=== PATIENT | male | born 1965 | race Caucasian/White ===

== ENCOUNTER 2018-08-10 05:30 | Emergency (ER) | payer OTHER ==
[2018-08-10 06:05] LABS: Absolute Lymphocytes (CBC) 1.5 K/uL (0.7-4.9); Absolute Monocytes 0.3 K/uL (0.1-1.3); Absolute Neutrophil 2.4 K/uL (1.8-8.0); Basophils % 0.3 % (0-1.3); Eosinophils % 1.1 % (0-4.4); Hematocrit 40.1 % (39.6-49.0); Lymphocytes % 34.8 % (15.3-44.8); MCH 29.7 pg (27.0-35.0); MPV 7.6 fL (7.6-11.3); RBC Red Blood Cell Count 4.66 M/uL (4.33-5.43)
[2018-08-10] MEDS ORDERED: ASPIRIN 81 MG CHEWABLE TABLET ONE (06:06)
[2018-08-10] MEDS ORDERED: NA CHLORIDE 0.9% 1,000 ML ONE ×2 (06:07→09:44)
[2018-08-10 06:13] LABS: Protime INR 0.92
[2018-08-10 06:28] LABS: ALT/SGPT 32 U/L (12-78); AST/SGOT 21 U/L (15-37); Albumin 3.8 g/dL (3.4-5.0); Alkaline Phosphatase 66 U/L (45-117); BUN Blood Urea Nitrogen 18 mg/dL (7-18); Bicarbonate 25 mmol/L (21-32); Bilirubin Direct 0.2 mg/dL (0-0.2); Bilirubin Total 0.6 mg/dL (0.2-1.0); Glucose Level 102 mg/dL (74-106); Lipase 129 U/L (73-393); Magnesium 2.2 mg/dL (1.8-2.4); NT PRO-BNP 51 pg/mL (<125); Potassium 3.9 mmol/L (3.5-5.1); Protein, Total 7.9 g/dL (6.4-8.2); Sodium Level 140 mmol/L (136-145); Troponin (Emerg Dept Use Only) < 0.02 ng/mL (0.0-0.045)
[2018-08-10 06:45] LABS: Urine Blood NEGATIVE (NEG); Urine Glucose NEGATIVE (NEG); Urine Protein NEGATIVE (NEG); Urine Specific Gravity 1.015 (1.005-1.030)
--- NOTE | 2018-08-10 08:26 | RAD REPORT ---
EXAM DESCRIPTION: CT - Chest For Pe Angio - 08/10/2018 6:55 am CLINICAL HISTORY: Chest pain COMPARISON: None. TECHNIQUE: Dynamically enhanced axial 3 mm thick images of the chest were obtained during administra tion of <100> mL Isovue 370 IV contrast. Coronal and oblique reconstruction images were generated and reviewed. Exam utilizes a protocol for optimal evaluation of pulmonary arterial tree. Maximum intensity projections 3D imaging was utilized All CT scans are performed using dose optimization technique as appropriate and may include automated exposure control or mA/KV adjustment according to patient size. FINDINGS: A pulmonary embolus is not seen. A thoracic aortic aneurysm is not noted. A pleural effusion is not seen. A pericardial effusion is not seen. A lung consolidation is not present. IMPRESSION: Negative for a pulmonary embolism.
--- NOTE | 2018-08-10 08:31 | RAD REPORT ---
EXAM DESCRIPTION: USExtrem Venous W Compress Bil08/10/2018 7:18 am CLINICAL HISTORY: Leg pain COMPARISON: 2010 FINDINGS: The right common femoral, superficial femoral, popliteal and posterior tibial veins are co mpressible and demonstrate augmentation. Doppler demonstrates good flow. Echogenic material is present within the left superficial femoral vein and left popliteal vein. 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 Echogenic material is present throughout the ve ins which is more peripheral than central and somewhat echogenic. Portions of the vein are compressib le and portions are partially compressible. Left common femoral vein is patent. 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 The th rombus has more of the appearance of being chronic than acute. An occlusion is not noted.
--- NOTE | 2018-08-10 08:38 | RAD REPORT ---
EXAM DESCRIPTION: [place] Single View08/10/2018 5:56 am CLINICAL HISTORY: Chest pain COMPARISON: none FINDINGS: The lungs appear clear of acute infiltrate. The heart is normal size IMPRESSION: No acute abnormalities displayed
--- NOTE | 2018-08-10 08:48 | ER ---
Nurse's Notes [facility] Name: Steve Carrillo Age: 52 yrs Sex: Male : 1965 Arrival Date: 08/10/2018 Time: 05:32 Bed 14 Private MD: Diagnosis: Chest pain, unspecified Presentation: 08/10 05:32 Presenting complaint: Patient states: I was at home and had a dull pain in my right jb4 upper back that radiated to my right chest. I could not get comfortable or go to sleep and I have a history of blood clots so I wanted to come in and make sure there wasn't anything going on. Transition of care: patient was not received from another setting of care. Onset of symptoms was August 08, 2018. Risk Assessment: Do you want to hurt yourself or someone else? Patient reports no desire to harm self or others. Initial Sepsis Screen: Does the patient meet any 2 criteria? No. Patient's initial sepsis screen is negative. Does the patient have a suspected source of infection? No. Patient's initial sepsis screen is negative. Care prior to arrival: None. 05:32 Method Of Arrival: Ambulatory jb4 05:32 Acuity: KRISTIN 3 jb4 Triage Assessment: 05:32 General: Appears in no apparent distress. comfortable, Behavior is calm, cooperative, jb4 appropriate for age. Pain: Complains of pain in right subscapular area Pain radiates to right breast Pain currently is 1 out of 10 on a pain scale. Quality of pain is described as dull, Pain began 2-3 days ago. EENT: No signs and/or symptoms were reported regarding the EENT system. Neuro: Level of Consciousness is awake, alert, obeys commands, Oriented to person, place, time, situation. Cardiovascular: Patient's skin is warm and dry. Rhythm is sinus rhythm. Respiratory: Airway is patent Respiratory effort is even, unlabored, Respiratory pattern is regular, symmetrical. GI: No signs and/or symptoms were reported involving the gastrointestinal system. : No signs and/or symptoms were reported regarding the genitourinary system. Derm: Skin is intact, Skin is pink, warm \T\ dry. Musculoskeletal: Circulation, motion, and sensation intact. Historical: - Allergies: 05:32 No Known Allergies; jb4 - Home Meds: 05:32 telmisartan oral oral [Active]; Metoprolol Tartrate Oral [Active]; mirtazapine Oral jb4 [Active]; - PMHx: 05:32 factor 5 leiden; Hypertension; DVT; jb4 - PSHx: 05:32 Knee surgery; ACL reconstuction; nose; jb4 - Immunization history:: Adult Immunizations up to date. - Social history:: Smoking status: Patient/guardian denies using tobacco, Patient uses alcohol, only on a social basis. - Ebola Screening: : No symptoms or risks identified at this time. - Family history:: not pertinent. Screenin:32 Abuse screen: Denies threats or abuse. Nutritional screening: No deficits noted. jb4 Tuberculosis screening: No symptoms or risk factors identified. Fall Risk None identified. Assessment: 05:32 General: see triage assessment.. jb4 06:19 Reassessment: Patient appears in no apparent distress at this time. Patient and/or jb4 family updated on plan of care and expected duration. Pain level reassessed. Patient is alert, oriented x 3, equal unlabored respirations, skin warm/dry/pink. Cardiovascular: Heart tones S1 S2 present Patient's skin is warm and dry. Rhythm is sinus rhythm. Respiratory: Airway is patent Respiratory effort is even, unlabored, Respiratory pattern is regular, symmetrical, Breath sounds are clear bilaterally. 06:44 Reassessment: Patient appears in no apparent distress at this time. Patient and/or jb4 family updated on plan of care and expected duration. Pain level reassessed. Patient is alert, oriented x 3, equal unlabored respirations, skin warm/dry/pink. Pt to CT via wheelchair. 07:00 General: Appears in no apparent distress. uncomfortable, Behavior is calm, cooperative, hj appropriate for age. Pain: Complains of pain in chest. Neuro: Level of Consciousness is awake, alert, obeys commands, Oriented to person, place, time, situation, Appropriate for age. Cardiovascular: Heart tones S1 S2 present Capillary refill < 3 seconds Patient's skin is warm and dry. Rhythm is sinus rhythm. Respiratory: Airway is patent Respiratory effort is even, unlabored, Respiratory pattern is regular, symmetrical, Breath sounds are clear bilaterally. GI: No signs and/or symptoms were reported involving the gastrointestinal system. : EENT: No signs and/or symptoms were reported regarding the EENT system. Derm: No signs and/or symptoms reported regarding the dermatologic system. Musculoskeletal: No signs and/or symptoms reported regarding the musculoskeletal system. 07:21 Reassessment: back form CT; awaiting results and POC;. hj 07:25 Reassessment: pt refused fluids NS \T\ 125 ml per hour;. hj Vital Signs: 05:32 BP 156 / 108; Pulse 69; Resp 16; Temp 99.0(O); Pulse Ox 98% on R/A; Weight 104.33 kg jb4 (R); Height 6 ft. 4 in. (193.04 cm) (R); Pain 1/10; 06:15 BP 154 / 100; Pulse 70; Resp 14; Pulse Ox 98% on R/A; jb4 07:22 BP 144 / 99; Pulse 62; Resp 18; Temp 98.1(TE); Pulse Ox 100% on R/A; hj 08:14 BP 156 / 98; Pulse 71; Resp 18; Pulse Ox 100% on R/A; hj 05:32 Body Mass Index 28.00 (104.33 kg, 193.04 cm) jb4 ED Course: 05:32 Patient arrived in ED. em1 05:32 Arm band placed on right wrist. jb4 05:32 Patient has correct armband on for positive identification. Placed in gown. Bed in low jb4 position. Call light in reach. Side rails up X 1. oncology consultant on. Pulse ox on. NIBP on. 05:32 EKG done, by ED staff, reviewed by Mitchell Jerez MD. jb4 05:33 Mitchell Jerez MD is Attending Physician. [facility] 05:44 Keyon Resendiz, CORI is Primary Nurse. jb4 05:46 Triage completed. jb4 05:55 X-ray completed. Portable x-ray completed in exam room. Patient tolerated procedure kw well. 05:56 XRAY Chest (1 view) In Process Unspecified. EDMS 06:00 Inserted saline lock: 20 gauge in right antecubital area, using aseptic technique. ag4 Blood collected. 06:55 CT completed. Patient tolerated procedure well. Patient moved to CT via wheelchair. Patient taken to ultrasound. via wheelchair. 06:56 CT Chest For PE Angio In Process Unspecified. EDMS 07:05 Gary, Genoveva, GRAIN MANAGER-C is PHCP. snw 07:18 US Extremity Venous W Compression Kong In Process Unspecified. EDMS 07:23 Ultrasound completed. Patient tolerated well. Patient moved back from ultrasound. aa4 09:05 No provider procedures requiring assistance completed. IV discontinued. hj Administered Medications: 06:00 Drug: Aspirin Chewable Tablet 324 mg Route: PO; jb4 06:31 Follow up: Response: No adverse reaction [facility] 06:00 Drug: NS 0.9% 1000 ml Route: IV; Rate: 125 ml/hr; Site: right antecubital; jb4 09:07 Follow up: IV Status: Order to discontinue infusion hj Outcome: 08:47 Discharge ordered by . snw 09:05 Discharged to home ambulatory, with family. 09:05 Condition: stable 09:05 Discharge instructions given to patient, family, Instructed on discharge instructions, follow up and referral plans. Demonstrated understanding of instructions, follow-up care. 09:06 Patient left the ED. Signatures: Dispatcher [employer] EDOR Mitchell Jerez MD MD cha Therrien, Shelly, GRAIN MANAGER-C GRAIN MANAGER-Csnw Beto Jules Amanda aa4 Gregg Do em1 Torie Hurtado Henry, RN RN hj Bryson, James, RN RN bobby4 Mazin Chow ag4
--- NOTE | 2018-08-10 08:48 | EDPHYS ---
Physician Documentation [facility] Name: Steve Carrillo Age: 52 yrs Sex: Male : 1965 Arrival Date: 08/10/2018 Time: 05:32 Bed 14 Private MD: ED Physician Mitchell Jerez HPI: 08/10 06:20 This 52 yrs old Male presents to ER via Ambulatory with complaints of chest gwen pain , right to back. 06:20 The patient or guardian reports chest pain that is located primarily in the anterior gwen chest wall, right. Onset: just prior to arrival, this morning. The patient presents with pain that is acute, with no known mechanism of injury. The symptoms are located in the right subscapular area. Onset: The symptoms/episode began/occurred this morning, today. The pain radiates to the diaphragm and right breast. Associated signs and symptoms: The patient has no apparent associated signs or symptoms. The problem was sustained without known cause. The pain radiates to Historical: - Allergies: 05:32 No Known Allergies; jb4 - Home Meds: 05:32 telmisartan oral oral [Active]; Metoprolol Tartrate Oral [Active]; mirtazapine Oral jb4 [Active]; - PMHx: 05:32 factor 5 leiden; Hypertension; DVT; jb4 - PSHx: 05:32 Knee surgery; ACL reconstuction; nose; jb4 - Immunization history:: Adult Immunizations up to date. - Social history:: Smoking status: Patient/guardian denies using tobacco, Patient uses alcohol, only on a social basis. - Ebola Screening: : No symptoms or risks identified at this time. - Family history:: not pertinent. ROS: 06:20 Constitutional: Negative for fever, chills, and weight loss, Eyes: Negative for injury, gwen pain, redness, and discharge, ENT: Negative for injury, pain, and discharge, Neck: Negative for injury, pain, and swelling, Respiratory: Negative for shortness of breath, cough, wheezing, and pleuritic chest pain, Abdomen/GI: Negative for abdominal pain, nausea, vomiting, diarrhea, and constipation, Back: Negative for injury and pain, : Negative for injury, bleeding, discharge, and swelling, MS/Extremity: Negative for injury and deformity, Skin: Negative for injury, rash, and discoloration, Neuro: Negative for headache, weakness, numbness, tingling, and seizure, Psych: Negative for depression, anxiety, suicide ideation, homicidal ideation, and hallucinations, Allergy/Immunology: Negative for hives, rash, and allergies, Endocrine: Negative for neck swelling, polydipsia, polyuria, polyphagia, and marked weight changes, Hematologic/Lymphatic: Negative for swollen nodes, abnormal bleeding, and unusual bruising. 06:20 Cardiovascular: Positive for chest pain. Exam: 06:20 Constitutional: This is a well developed, well nourished patient who is awake, alert, gwen and in no acute distress. Head/Face: Normocephalic, atraumatic. Eyes: Pupils equal round and reactive to light, extra-ocular motions intact. Lids and lashes normal. Conjunctiva and sclera are non-icteric and not injected. Cornea within normal limits. Periorbital areas with no swelling, redness, or edema. ENT: Nares patent. No nasal discharge, no septal abnormalities noted. Tympanic membranes are normal and external auditory canals are clear. Oropharynx with no redness, swelling, or masses, exudates, or evidence of obstruction, uvula midline. Mucous membranes moist. Neck: Trachea midline, no thyromegaly or masses palpated, and no cervical lymphadenopathy. Supple, full range of motion without nuchal rigidity, or vertebral point tenderness. No Meningismus. Chest/axilla: Normal chest wall appearance and motion. Nontender with no deformity. No lesions are appreciated. Cardiovascular: Regular rate and rhythm with a normal S1 and S2. No gallops, murmurs, or rubs. Normal PMI, no JVD. No pulse deficits. Respiratory: Lungs have equal breath sounds bilaterally, clear to auscultation and percussion. No rales, rhonchi or wheezes noted. No increased work of breathing, no retractions or nasal flaring. Abdomen/GI: Soft, non-tender, with normal bowel sounds. No distension or tympany. No guarding or rebound. No evidence of tenderness throughout. Back: No spinal tenderness. No costovertebral tenderness. Full range of motion. Male : Normal genitalia with no discharge or lesions. Skin: Warm, dry with normal turgor. Normal color with no rashes, no lesions, and no evidence of cellulitis. MS/ Extremity: Pulses equal, no cyanosis. Neurovascular intact. Full, normal range of motion. Neuro: Awake and alert, GCS 15, oriented to person, place, time, and situation. Cranial nerves II-XII grossly intact. Motor strength 5/5 in all extremities. Sensory grossly intact. Cerebellar exam normal. Normal gait. Psych: Awake, alert, with orientation to person, place and time. Behavior, mood, and affect are within normal limits. 06:20 Musculoskeletal/extremity: DVT Exam: No signs of deep vein thrombosis. no pain, no swelling, no tenderness, negative Homans' sign noted on exam, no appreciated bluish discoloration, no erythema, no increased warmth. Vital Signs: 05:32 BP 156 / 108; Pulse 69; Resp 16; Temp 99.0(O); Pulse Ox 98% on R/A; Weight 104.33 kg jb4 (R); Height 6 ft. 4 in. (193.04 cm) (R); Pain 1/10; 06:15 BP 154 / 100; Pulse 70; Resp 14; Pulse Ox 98% on R/A; jb4 07:22 BP 144 / 99; Pulse 62; Resp 18; Temp 98.1(TE); Pulse Ox 100% on R/A; hj 08:14 BP 156 / 98; Pulse 71; Resp 18; Pulse Ox 100% on R/A; hj 05:32 Body Mass Index 28.00 (104.33 kg, 193.04 cm) jb4 MDM: 05:33 Patient medically screened. [facility] 06:27 Data reviewed: vital signs, nurses notes, lab test result(s), EKG, radiologic studies. [facility] 08/10 05:34 Order name: Basic Metabolic Panel; Complete Time: 06:46 [facility] 08/10 05:34 Order name: CBC with Diff; Complete Time: 06:46 [facility] 08/10 05:34 Order name: LFT's; Complete Time: 06:46 [facility] 08/10 05:34 Order name: Magnesium; Complete Time: 06:46 [facility] 08/10 05:34 Order name: NT PRO-BNP; Complete Time: 06:46 [facility] 08/10 05:34 Order name: PT-INR; Complete Time: 06:46 [facility] 08/10 05:34 Order name: Troponin (emerg Dept Use Only); Complete Time: 06:46 [facility] 08/10 05:34 Order name: XRAY Chest (1 view); Complete Time: 08:40 [facility] 08/10 05:34 Order name: Lipase; Complete Time: 06:46 [facility] 08/10 06:17 Order name: US Extremity Venous W Compression Kong; Complete Time: 08:40 [facility] 08/10 06:17 Order name: CT Chest For PE Angio; Complete Time: 08:40 [facility] 08/10 06:37 Order name: Urine Dipstick--Ancillary (enter results) ag4 08/10 06:37 Order name: Urine Dipstick-Ancillary; Complete Time: 06:46 EDMS 08/10 06:47 Order name: Troponin (emerg Dept Use Only); Complete Time: 08:40 [facility] 08/10 05:34 Order name: EKG; Complete Time: 05:35 [facility] 08/10 05:34 Order name: Cardiac monitoring; Complete Time: 05:53 [facility] 08/10 05:34 Order name: EKG - Nurse/Tech; Complete Time: 05:53 [facility] 08/10 05:34 Order name: IV Saline Lock; Complete Time: 06:13 [facility] 08/10 05:34 Order name: Labs collected and sent; Complete Time: 06:13 [facility] 08/10 05:34 Order name: O2 Per Protocol; Complete Time: 05:53 [facility] 08/10 05:34 Order name: O2 Sat Monitoring; Complete Time: 05:53 [facility] 08/10 05:34 Order name: Urine Dipstick-Ancillary (obtain specimen); Complete Time: 06:31 [facility] 08/10 06:47 Order name: Repeat Cardiac Enzymes at: 8 am please; Complete Time: 08:24 [facility] Administered Medications: 06:00 Drug: Aspirin Chewable Tablet 324 mg Route: PO; jb4 06:31 Follow up: Response: No adverse reaction jb4 06:00 Drug: NS 0.9% 1000 ml Route: IV; Rate: 125 ml/hr; Site: right antecubital; jb4 09:07 Follow up: IV Status: Order to discontinue infusion hj Disposition: 15:54 Co-signature as Attending Physician, Mitchell Jerez MD I agree with the assessment and [facility] plan of care. Disposition: 08/10/18 08:47 Discharged to Home. Impression: Chest pain, unspecified. - Condition is Stable. - Discharge Instructions: Nonspecific Chest Pain, Deep Vein Thrombosis, Hypertension, Aspirin and Your Heart. - Medication Reconciliation Form, Thank You Letter, Antibiotic Education, Prescription Opioid Use form. - Follow up: Private Physician; When: 2 - 3 days; Reason: Recheck today's complaints, Continuance of care, Re-evaluation by your physician. Follow up: Emergency Department; When: As needed; Reason: Worsening of condition. - Notes: Recommend 81mg baby aspirin daily Signatures: Dispatcher [employer] EDMS Mitchell Jerez MD MD cha Therrien, Shelly, RETAIL PRICING COORDINATOR-C RETAIL PRICING COORDINATOR-Csnw Deejay Oliveros, RN RN Keyon Resendiz RN RN jb4 Corrections: (The following items were deleted from the chart) 09:06 08:47 08/10/2018 08:47 Discharged to Home. Impression: Chest pain, unspecified. hj Condition is Stable. Forms are Medication Reconciliation Form, Thank You Letter, Antibiotic Education, Prescription Opioid Use. Follow up: Private Physician; When: 2 - 3 days; Reason: Recheck today's complaints, Continuance of care, Re-evaluation by your physician. Follow up: Emergency Department; When: As needed; Reason: Worsening of condition. snw
[2018-08-10] MEDS ORDERED: FENTANYL CITR 100 MCG/2 ML ONE (09:38)
[2018-08-10] MEDS ORDERED: PROMETHAZINE 25 MG/ML VIAL ONE (09:38)
--- OUTSIDE RECORDS SUMMARY | 2018-08-10 17:47 | XMS REPORT | Clinical Summary ---
:1965 Author Organization [facility] Address [address] [place] [address] Care Team Providers Name Role Phone Bird Tavares MD Primary Care Provider Allergies No Known Allergies Medications Medication Sig Dispensed Refills Start Date End Date Status mirtazapine (REMERON) TAKE 1/2-1 TABLET 2 04/03/2017 Active 30 MG tablet BY MOUTH AT BEDTIME multivitamin with Take 1 tablet by 0 Active minerals tablet mouth daily. CYANOCOBALAMIN, VITAMIN Take by mouth 0 Active B-12, (VITAMIN B-12 daily. ORAL) aspirin (ECOTRIN) 81 MG Take 81 mg by 0 Active enteric coated tablet mouth daily. Active Problems Not on file Family History Medical History Relation Name Comments No Known Problems Brother Alzheimer's disease Father No Known Problems Mother Aneurysm Sister Relation Name Status Comments Brother Alive Father Alive Mother Alive Sister Social History Tobacco Use Types Packs/Day Years Used Date Never Smoker Smokeless Tobacco: Never Used Alcohol Use Drinks/Week oz/Week Comments Yes 2 Glasses of wine 1.2 Sex Assigned at Date Recorded Not on file Job Start Date Occupation Industry Not on file Not on file Not on file Travel History Travel Start Travel End No recent travel history available. Last Filed Vital Signs Not on file Plan of Treatment Health Maintenance Due Date Last Done Comments COLON CANCER SCREENING 12/24/2015 SHINGLES VACCINES (1 of 2) 12/24/2015 INFLUENZA VACCINE 03/21/2018 Results Not on fileafter 08/09/2017 Insurance Payer Benefit Plan / Group Subscriber ID Type Phone Address [employer] PPO OPEN CHOICE xxxxxxxxx PPO Advance Directives Patient has advance care planning documents on file. For more information, please contact:Gustavo Hair[address] [place] [address]
--- NOTE | 2018-08-10 18:07 | EKG ---
Test Date: 2018-08-10 Test Time: 05:38:13 Front End Java Developer: [email or web address] MEASUREMENT RESULTS: Intervals: Rate: 73 [place]: 226 QRSD: 86 QT: 372 QTc: 409 [place]: P: 68 [place]: 226 QRS: 41 T: 18 INTERPRETIVE STATEMENTS: Sinus rhythm with 1st degree AV block Otherwise normal ECG Compared to ECG 08/04/1994 10:08:00 First degree AV block now present Sinus bradycardia no longer present Sinus arrhythmia no longer present Electronically Signed On 08-10-18 18:05:27 CLAM SHUCKING MACHINE TENDER by Tu Wagner
== END 2018-08-10 09:06 | disposition home or self-care (01) ==
LOC: ER 05:30
DX: R07.9 Chest pain, unspecified (principal); I10 Essential (primary) hypertension; D68.51 Activated protein C resistance; Z86.718 Personal history of other venous thrombosis and embolism
CPT/HCPCS: 36415; 71045; 71275; 80048; 80076; 81003; 83690; 83735; 83880; 84484; 85025; 85610; 93005; 93970; 96360; 96361; 99285; J2550; J3010; J7030; Q9967